=== PATIENT | female | born 1985 | race African-American/Black ===

== ENCOUNTER 2017-07-23 23:46 | Emergency (ER) | payer OTHER ==
[~2017-07-23] VITALS: Ht 175.3 cm; Wt 68.5 kg
[2017-07-24] MEDS ORDERED: BUTALB-ACETAMI1 EACH PO (03:08)
== END 2017-07-24 03:38 ==
LOC: ER 23:46
DX: G44.201 Tension-type headache, unspecified, intractable (principal)

== ENCOUNTER 2019-01-15 16:29 | Emergency (ER) | payer OTHER ==
[~2019-01-15] VITALS: Ht 175.3 cm; Wt 77.1 kg
[~2019-01-15 16:29] MED LIST: BUTALB-ACETAMI1 EACH PO
== END 2019-01-15 18:57 | disposition home or self-care (01) ==
LOC: ER 16:29
DX: S13.4XXA Sprain of ligaments of cervical spine, initial encounter (principal); S30.0XXA Contusion of lower back and pelvis, initial encounter; V49.9XXA Car occupant (driver) (passenger) injured in unspecified traffic accident, initial encounter; Y93.89 Activity, other specified; Y92.488 Other paved roadways as the place of occurrence of the external cause; Y99.8 Other external cause status

== ENCOUNTER → 2019-05-12 | Outpatient (CLI) | payer OTHER | END | disposition home or self-care (01) | LOC: PRENATAL 09:00 | DX: O35.3XX1 Maternal care for (suspected) damage to fetus from viral disease in mother, fetus 1 (principal); O34.12 Maternal care for benign tumor of corpus uteri, second trimester; D25.9 Leiomyoma of uterus, unspecified ==

== ENCOUNTER 2019-08-27 13:28 | Outpatient (CLI) | payer OTHER ==
[2019-08-29] MEDS ORDERED: PRENATAL TABLE1 EAC1 PO (06:53)
[2019-08-29] MEDS ORDERED: DIALYVITE 800-1 EACH PO (06:54)
== END 2019-08-28 14:56 | disposition home or self-care (01) ==
LOC: OBS/DEL 13:28
PROVIDERS: ATTEND Obstetrics & Gynecology
DX: O26.843 Uterine size-date discrepancy, third trimester (principal); O36.8131 Decreased fetal movements, third trimester, fetus 1; O26.893 Other specified pregnancy related conditions, third trimester; O34.13 Maternal care for benign tumor of corpus uteri, third trimester; R10.9 Unspecified abdominal pain

== ENCOUNTER 2019-08-29 06:35 | Inpatient (IN) | payer OTHER ==
[~2019-08-29] VITALS: Ht 175.3 cm; Wt 3.2 kg
[2019-08-29] MEDS ORDERED: PRENATAL TABLE1 EAC1 PO (06:53)
[2019-08-29] MEDS ORDERED: DIALYVITE 800-1 EACH PO (06:54)
== END 2019-09-01 13:36 | disposition home or self-care (01) | DRG 786 ==
LOC: OBS/DEL 06:35 → OB/GYN 11:30 → LDR 11:30 → SURG-SUITE 11:30 → OB/GYN 20:17 → SURG-SUITE 22:15
PROVIDERS: ADMIT Obstetrics & Gynecology; ATTEND Obstetrics & Gynecology
PROC: 0UB90ZZ Excision of Uterus, Open Approach (ICD-10-PCS; 2019-08-29)
PROC: 3E033VJ Introduction of Other Hormone into Peripheral Vein, Percutaneous Approach (ICD-10-PCS; 2019-08-29)
PROC: 4A1HXCZ Monitoring of Products of Conception, Cardiac Rate, External Approach (ICD-10-PCS; 2019-08-29)
PROC: 10D00Z1 Extraction of Products of Conception, Low, Open Approach (ICD-10-PCS; principal; 2019-08-29 19:00)
DX: O61.0 Failed medical induction of labor (principal); O60.14X0 Preterm labor third trimester with preterm delivery third trimester, not applicable or unspecified; Z3A.35 35 weeks gestation of pregnancy; Z37.0 Single live birth; D25.1 Intramural leiomyoma of uterus

== ENCOUNTER 2023-04-10 17:58 | Inpatient (IN) | payer OTHER ==
[~2023-04-10] VITALS: Ht 175.3 cm; Wt 90.3 kg
[~2023-04-10 17:58] MED LIST changes: +DIALYVITE 800-1 EACH PO; +PRENATAL TABLE1 EAC1 PO
[2023-04-10 18:40] LABS: HEMATOCRIT 30.9 % (36.0-45.00); HEMOGLOBIN 10.6 g/dL (12.0-15.00); MEAN CELL VOLUME 93.6 fL (80.00-100.00); MEAN CORPUSCULAR HGB CONC 34.2 g/dl (32.0-36.0); PLATELET COUNT 463 K/uL (150-450); RED CELL DISTRIBUTION WIDTH 13.4 % (11.5-14.5)
[2023-04-10 18:43] LABS: URINE APPEARANCE Clear; URINE BILIRRUBIN Negative (NEGATIVE); URINE BLOOD Negative; URINE COLOR Yellow; URINE GLUCOSE Negative (NEGATIVE); URINE LEUKOCYTE Negative; URINE NITRATE Negative; URINE PROTEIN Negative (NEGATIVE); URINE UROBILINOGEN 0.2 E.U./dl
[2023-04-10 18:44] LABS: URINE BACTERIA 1137.4 uL (0.0-1933); URINE EPITHELIAL CELLS 88.3 uL (0.0-38.8); URINE RBC 2.7 uL (0.0-20.8); URINE WBC 8.4 uL (0.0-23.2)
[2023-04-10 19:11] LABS: INR < 0.93; PARTIAL THROMBOPLASTIN TIME 27.3 SECONDS (22.0-34.0); PROTHROMBIN TIME 9.8 SECONDS (9.0-11.5)
[2023-04-10] MEDS ORDERED: IRON18 MG PO (20:19)
[2023-04-10] MEDS ORDERED: CHILDREN'S ASPI81 MG (20:20)
[2023-04-10] MEDS ORDERED: RINGERS SOLUTION,LACTATED 1,000 ML IV SCH (20:30)
[2023-04-11] MEDS ORDERED: ERYTHROMYCIN BASE 3.5 GM OINT...G. OP ONE (01:03)
[2023-04-11] MEDS ORDERED: OXYTOCIN 10 UNITS/ML VIAL ONE ×2 (01:03→03:34)
[2023-04-11] MEDS ORDERED: CEFAZOLIN SODIUM 1,000 MG VIAL ONE (02:23)
[2023-04-11] MEDS ORDERED: KETOROLAC TROMETHAMINE 60 MG VIAL IM STA (02:37)
[2023-04-11] MEDS ORDERED: PROMETHAZINE HCL 25 MG/ML AMPUL IM PRN (02:45)
[2023-04-11] MEDS ORDERED: ERYTHROMYCIN BASE 1 GM TUBE OP SCH (02:45)
[2023-04-11] MEDS ORDERED: MEPERIDINE HCL/PF 50 MG/ML VIAL IM PRN (02:45)
[2023-04-11] MEDS ORDERED: CHLORHEXIDINE GLUCONATE 120 ML BOTTLE TOP SCH (02:45)
[2023-04-11] MEDS ORDERED: OXYTOCIN 1,000 ML IV SCH (02:45)
[2023-04-11] MEDS ORDERED: RINGERS SOLUTION,LACTATED 1,000 ML IV SCH (02:45)
[2023-04-11 03:38] LABS: ABG PH 7.343 (7.35-7.45)
[2023-04-11 03:39] LABS: ABG PO2 38.9 mmHg (80-100); BASE EXCESS -2.5 mmol/l; BICARBONATE 23.4 mmol/l (23-25); SaO2 69.3 %; Tco2 24.7 mmol/l; o2 21 %
[2023-04-11 06:28] LABS: HEMATOCRIT 30.5 % (36.0-45.00); HEMOGLOBIN 10.5 g/dL (12.0-15.00); MEAN CELL VOLUME 95.1 fL (80.00-100.00); MEAN CORPUSCULAR HEMOGLOBIN 32.7 pg (27.00-32.0); MEAN CORPUSCULAR HGB CONC 34.4 g/dl (32.0-36.0); PLATELET COUNT 417 K/uL (150-450); RED BLOOD COUNT 3.21 M/uL (4.00-6.00); RED CELL DISTRIBUTION WIDTH 13.4 % (11.5-14.5)
[2023-04-11] MEDS ORDERED: OxyCODONE HCL/APAP UD (PERCOCET) PO PRN (13:00)
== END 2023-04-13 16:22 | disposition home or self-care (01) | DRG 785 ==
LOC: OBS/DEL 17:58 → OB/GYN 22:29 → OBS/DEL 22:29 → LDR 22:29 → OB/GYN 04-11 02:31
PROVIDERS: ADMIT Obstetrics & Gynecology; ATTEND Obstetrics & Gynecology
PROC: 4A1HXCZ Monitoring of Products of Conception, Cardiac Rate, External Approach (ICD-10-PCS; 2023-04-10)
PROC: BY4FZZZ Ultrasonography of Third Trimester, Single Fetus (ICD-10-PCS; 2023-04-10)
PROC: 0UB70ZZ Excision of Bilateral Fallopian Tubes, Open Approach (ICD-10-PCS; 2023-04-11)
PROC: 10D00Z1 Extraction of Products of Conception, Low, Open Approach (ICD-10-PCS; principal; 2023-04-11 00:45)
DX: O34.211 Maternal care for low transverse scar from previous cesarean delivery (principal); Z3A.38 38 weeks gestation of pregnancy; Z37.0 Single live birth; Z30.2 Encounter for sterilization; Z20.822 Contact with and (suspected) exposure to COVID-19